=== PATIENT | female | born 1985 | race Caucasian/White ===

== ENCOUNTER → 2025-06-25 | Outpatient (CLI) | payer BC, SELFPAY ==
--- NOTE | 2025-06-25 13:53 | XR_ITS ---
Examination: Lumbar spine, 5 views Technique: Lumbar spine AP, lateral, coned lateral lower lumbar spine, bilateral obliques 5 views Exam date and time: June 25, 2025 1422 hours INDICATIONS: Injury to the back 10 days ago, back pain. FINDINGS: Adequate alignment lumbar vertebral bodies. No lumbar fracture. Moderate disc narrowing L3-L4, L5-S1. No spondylolisthesis IMPRESSION: No acute lumbar fracture.
--- NOTE | 2025-06-25 13:53 | XR_ITS ---
Examination: Thoracic spine 3 views Technique one AP lateral coned lateral upper dorsal spine 3 views Date and time: June 25, 2025 1430 hours INDICATIONS: Injury to the back 10 days ago, back pain. FINDINGS: Adequate alignment thoracic vertebral bodies. No thoracic fracture. Mild diffuse thoracic degenerative disc disease. IMPRESSION: No acute thoracic fracture.
== END | disposition home or self-care (01) ==
DX: S29.9XXA Unspecified injury of thorax, initial encounter (principal); X58.XXXA Exposure to other specified factors, initial encounter
CPT/HCPCS: 72072; 72110